=== PATIENT | female | born 1995 | race Caucasian/White ===

== ENCOUNTER → 2024-08-03 07:13 | Outpatient (CLI) | payer OTHER, SELFPAY ==
--- NOTE | 2024-08-03 07:16 | DI.MRI.S_ITS ---
PROCEDURE: MR FOOT RT WO CON INDICATIONS: PAIN IN RIGHT FOOT TECHNIQUE: Multiphasic, multisequence MRI of the forefoot was performed, without intravenous contrast administration. COMPARISON: None. FINDINGS: Image quality: Excellent. Bones and joints: No bone marrow contusions or metatarsal stress fractures. The sesamoid bones appear in expected positions, without internal edema. No metatarsophalangeal joint degeneration. No intraosseous lesions. Soft tissues: The visualized plantar foot muscles demonstrate normal signal and bulk. Visualized flexor and extensor tendons appear intact, without tenosynovitis. The distal insertions of the peroneus brevis and longus tendons appear intact. The principal Lisfranc ligament appears intact. Small intermetatarsal bursal effusions. No solid interdigital mass. Sagittal images demonstrate no evidence for plantar plate tears. IMPRESSION: No acute trabecular bone injury. No significant ligament or tendon injury is seen. No interdigital neuroma is seen. Approved by: Willie Cole M.D. on 08/03/2024 at 16:02
== END ==
PROVIDERS: Referring Provider Family Medicine; Visit Provider Family Medicine
DX: M79.671 Pain in right foot (principal)
CPT/HCPCS: 73718